=== PATIENT | female | born 1980 | race Caucasian/White ===

== ENCOUNTER 2019-09-14 11:33 | Day surgery (SDC) | payer OTHER ==
[~2019-09-14] VITALS: Ht 167.6 cm; Wt 58.6 kg
[2019-09-14 12:01] VITALS: BP 131/71; PULSE 59; TEMP 97.8
[2019-09-14] MEDS ORDERED: MIRENA52 MG IY (12:06)
[2019-09-14] MEDS ORDERED: FLOVENT DI100 MCG/Ac IH (12:09)
[2019-09-14] MEDS ORDERED: BIOTIN5000 MCG PO (12:10)
[2019-09-14] MEDS ORDERED: CENTRUM1 TA1 PO (12:10)
[2019-09-14 14:05] VITALS: BP 94/64; PULSE 54; TEMP 98.4
--- NOTE | 2019-09-14 14:05 | NUR ---
Patient arrives back from OR alert, denies pain or nausea. Patient monitor applied, vitals stable. Dressing does have a small amount of drainage noted and marked on bandage. Patient's mother brought to bedside.
--- NOTE | 2019-09-14 14:15 | NUR ---
Dr Montgomery into see patient at this time.
[2019-09-14 14:20] VITALS: BP 117/68; PULSE 49
[2019-09-14 14:35] VITALS: BP 112/65; PULSE 44
--- NOTE | 2019-09-14 14:45 | NUR ---
Patient tolerates muffin, water and coffee without any nausea. Denies pain. Drainage on bandage has not changed or moved from marked area. Patient reports she is ready to go home at any time.
--- NOTE | 2019-09-14 14:55 | NUR ---
Dismissal instructions gone over with patient and patient's mother. Both verbalize understanding and all questions answered.
--- NOTE | 2019-09-14 15:00 | NUR ---
Patient dismissed to patient enterance via wheelchair with mother and without any complications. Patient and mother leave thanking staff for services.
== END 2019-09-14 15:00 | disposition home or self-care (01) ==
LOC: SDCO 11:33
DX: D17.1 Benign lipomatous neoplasm of skin and subcutaneous tissue of trunk (principal); K64.8 Other hemorrhoids
CPT/HCPCS: J1885; J2250; J2405; J2704; J3010; J7120

== ENCOUNTER → 2019-12-23 | Outpatient (CLI) | payer OTHER ==
[~2019-12-23] MED LIST: BIOTIN5000 MCG PO; CENTRUM1 TA1 PO; FLOVENT DI100 MCG/Ac IH; MIRENA52 MG IY
== END ==
LOC: COL.RAD 12:42
DX: M25.461 Effusion, right knee (principal)

== ENCOUNTER → 2024-06-10 | Outpatient (CLI) | payer OTHER | LOC: MC.RAD 12:36 | DX: Z12.31 Encounter for screening mammogram for malignant neoplasm of breast (principal) ==